=== PATIENT | female | born 1985 | race Caucasian/White ===

== ENCOUNTER → 2016-10-28 | Outpatient (CLI) | payer BC ==
[~2016-10-28] MED LIST: BCPILLS PO; MTR600X PO; OXYC-57 PO; PRENTAB26 PO
[2016-10-28 15:42] LABS: HEMATOCRIT 37.4 % (37-47)
[2016-10-28 16:06] LABS: URINE APPEARANCE CLEAR (CLEAR); URINE BILIRUBIN NEG (NEG); URINE COLOR YELLOW; URINE EPITHELIAL CELL AUTO 20-30 /lpf (0-5); URINE NITRITE NEG (NEG); URINE SPECIFIC GRAVITY 1.007 (1.000-1.030); UROBILINOGEN NEG (NEG)
[2016-10-28 16:07] LABS: MANUAL MICROSCOPIC REQUIRED? NO; REVIEW REQ? NO
[2016-10-28 18:32] LABS: GTGD 50 Grams
== END | disposition home or self-care (01) ==
LOC: C.LAB1850 14:23
PROVIDERS: ATTEND Obstetrics & Gynecology
DX: Z34.01 Encounter for supervision of normal first pregnancy, first trimester (principal)

== ENCOUNTER 2016-11-28 13:03 | Outpatient (CLI) | payer BC ==
[~2016-11-28 13:03] MED LIST changes: -MTR600X PO; -OXYC-57 PO; -PRENTAB26 PO
== END 2016-11-28 14:00 | disposition home or self-care (01) ==
LOC: C.OPB 13:03 → C.LD 13:06 → C.OPB 14:00
PROVIDERS: ATTEND Obstetrics & Gynecology
DX: O30.043 Twin pregnancy, dichorionic/diamniotic, third trimester (principal); Z3A.32 32 weeks gestation of pregnancy

== ENCOUNTER 2016-12-02 09:27 | Outpatient (CLI) | payer BC ==
[~2016-12-02] VITALS: Ht 152.4 cm; Wt 110.5 kg
[2016-12-02] MEDS ORDERED: PRENTAB26 PO (10:01)
[2016-12-02 10:05] VITALS: Ht 152.4 cm; Wt 110.5 kg
[2016-12-02] MEDS: BETAMETH SOD PHOS/ACETATE IA 6 MG/ML IM SCH (13:18)
[2016-12-02] MEDS ORDERED: ACETAMINOPHEN 325 MG TAB PO PRN (23:15)
[2016-12-02] MEDS ORDERED: ACETAMINOPHEN 325 MG TAB ONE (23:24)
[2016-12-03] MEDS ORDERED: BETAMETH SOD PHOS/ACETATE IA 6 MG/ML ONE (12:43)
[2016-12-03] MEDS: BETAMETH SOD PHOS/ACETATE IA 6 MG/ML IM SCH (13:06)
== END 2016-12-03 13:45 | disposition home or self-care (01) ==
LOC: C.OPB 09:27 → C.LD 09:27 → C.OPB 12-03 13:45
PROVIDERS: ATTEND Obstetrics & Gynecology
DX: O62.9 Abnormality of forces of labor, unspecified (principal); O26.853 Spotting complicating pregnancy, third trimester; O30.043 Twin pregnancy, dichorionic/diamniotic, third trimester; Z3A.33 33 weeks gestation of pregnancy

== ENCOUNTER 2016-12-10 18:39 | Outpatient (CLI) | payer BC ==
[~2016-12-10] VITALS: Ht 172.7 cm; Wt 110.0 kg
[~2016-12-10 18:39] MED LIST changes: -BCPILLS PO; +PRENTAB26 PO
[2016-12-10 18:53] VITALS: Ht 172.7 cm; Wt 110.0 kg
--- NOTE | 2016-12-17 12:30 | EDITING REQUIRED CODING QUERY ---
DIAGNOSIS NEEDED To promote full compliance with coding requirements relating to patient care, physician participation is requested in all cases of surfacing machine operator uncertainty. Please assist us with the question(s) below: Coding Question: The patient received care in labor and delivery on 12/10/16 as noted within the record. Please document the diagnosis that is being addressed by the medication/treatment. Provider Response: DIAGNOSIS: Twin in third trimester. Thank you for your assistance, Paulina Espinosa - Bottle Washer
== END 2016-12-10 19:38 | disposition home or self-care (01) ==
LOC: C.OPB 18:39 → C.LD 18:39 → C.OPB 19:38
PROVIDERS: ATTEND Obstetrics & Gynecology
DX: O30.093 Twin pregnancy, unable to determine number of placenta and number of amniotic sacs, third trimester (principal); Z3A.34 34 weeks gestation of pregnancy

== ENCOUNTER 2016-12-17 18:27 | Outpatient (CLI) | payer BC | END 2016-12-17 19:26 | disposition home or self-care (01) | LOC: C.LD 18:27 → C.OPB 18:27 | PROVIDERS: ATTEND Obstetrics & Gynecology | DX: O30.043 Twin pregnancy, dichorionic/diamniotic, third trimester (principal); Z3A.35 35 weeks gestation of pregnancy ==

== ENCOUNTER 2016-12-21 18:39 | Outpatient (CLI) | payer BC ==
[~2016-12-21 18:39] MED LIST changes: -MTR600X PO; -OXYC-57 PO
--- NOTE | 2016-12-23 10:43 | EDITING REQUIRED CODING QUERY ---
DIAGNOSIS NEEDED To promote full compliance with coding requirements relating to patient care, physician participation is requested in all cases of ornamental machine operator uncertainty. Please assist us with the question(s) below: Coding Question: The patient received care in labor and delivery on 12/21/16 as noted within the record. Please document the diagnosis that is being addressed by the medication/treatment. Provider Response: DIAGNOSIS: Twin gestation Thank you for your assistance, Paulina Espinosa - Nut Sifter
== END 2016-12-21 19:00 | disposition home or self-care (01) ==
LOC: C.LD 18:39 → C.OPB 18:39
PROVIDERS: ATTEND Obstetrics & Gynecology
DX: O30.043 Twin pregnancy, dichorionic/diamniotic, third trimester (principal); Z3A.36 36 weeks gestation of pregnancy

== ENCOUNTER → 2016-12-21 | Outpatient (CLI) | payer BC ==
[~2016-12-21] MED LIST changes: +MTR600X PO; +OXYC-57 PO
== END | disposition home or self-care (01) ==
LOC: C.LABSPEC 13:40
PROVIDERS: ATTEND Obstetrics & Gynecology
DX: O30.043 Twin pregnancy, dichorionic/diamniotic, third trimester (principal); Z3A.00 Weeks of gestation of pregnancy not specified

== ENCOUNTER 2016-12-24 18:30 | Outpatient (CLI) | payer BC | END 2016-12-24 19:05 | disposition home or self-care (01) | LOC: C.OPB 18:30 → C.LD 18:30 → C.OPB 19:05 | PROVIDERS: ATTEND Obstetrics & Gynecology | DX: O30.093 Twin pregnancy, unable to determine number of placenta and number of amniotic sacs, third trimester (principal); Z3A.36 36 weeks gestation of pregnancy ==

== ENCOUNTER 2016-12-28 09:12 | Outpatient (CLI) | payer BC ==
--- NOTE | 2016-12-29 14:15 | EDITING REQUIRED CODING QUERY ---
DIAGNOSIS NEEDED To promote full compliance with coding requirements relating to patient care, physician participation is requested in all cases of program services planner uncertainty. Please assist us with the question(s) below: Coding Question: The patient received care in labor and delivery on 12/28/16 as noted within the record. Please document the diagnosis that is being addressed by the medication/treatment. Provider Response: DIAGNOSIS: Twin in 3rd trimester. Thank you for your assistance, Paulina Espinosa - Order Picker/Assembler
== END 2016-12-28 10:16 | disposition home or self-care (01) ==
LOC: C.LD 09:12 → C.OPB 09:12
PROVIDERS: ATTEND Obstetrics & Gynecology
DX: O30.043 Twin pregnancy, dichorionic/diamniotic, third trimester (principal); Z3A.37 37 weeks gestation of pregnancy

== ENCOUNTER 2017-01-01 14:49 | Inpatient (IN) | payer BC ==
[~2017-01-01] VITALS: Ht 172.7 cm; Wt 114.1 kg
[2017-01-01] MEDS ORDERED: LACTATED RINGER'S 1000ML 1,000 ML IV PRN (15:21)
[2017-01-01] MEDS ORDERED: LACTATED RINGER'S 1000ML 500 ML IV PRN ×2 (15:23→17:14)
[2017-01-01] MEDS ORDERED: OXYTOCIN 30 UNITS/500ML NSS IV PRN (15:30)
[2017-01-01 15:46] LABS: HEMATOCRIT 42.6 % (37-47); MEAN CELL VOLUME 82.4 fL (80-100); MEAN CORPUSCULAR HEMOGLOBIN 27.5 pg (25-34); MEAN CORPUSCULAR HGB CONC 33.3 g/dl (32-36); PLATELET COUNT 167 K/uL (130-400); RED BLOOD COUNT 5.17 M/uL (4.2-5.4); WHITE BLOOD COUNT 10.11 K/uL (4.8-10.8)
[2017-01-01] MEDS: LACTATED RINGER'S 1000ML 1,000 ML IV SCH ×2 (16:05→17:41)
[2017-01-01] MEDS ORDERED: EpHEDrine SULFATE INJ 50 MG/ML AMP ONE (16:19)
[2017-01-01] MEDS ORDERED: BUPIVACAINE 0.25% 30 ML VIAL ONE (16:19)
[2017-01-01] MEDS ORDERED: FENTANYL CITRATE INJ 50 MCG/1 ML 2 ML VIAL ONE ×2 (16:20→19:20)
[2017-01-01] MEDS ORDERED: FENTANYL 2MCG/ML ROPIV 1.25MG/ML 100ML BAG EPI ONE (16:21)
[2017-01-01] MEDS ORDERED: NALOXONE HCL INJ 1 MG in SODIUM CHLORIDE 0.9% 1000ML 1,000 ML IV PRN (17:14)
[2017-01-01] MEDS ORDERED: EpHEDrine SULFATE INJ 50 MG/ML AMP IV PRN (17:15)
[2017-01-01] MEDS ORDERED: FENTANYL 2MCG/ML ROPIV 1.25MG/ML 100ML BAG EPI PRN (17:15)
[2017-01-01] MEDS ORDERED: ONDANSETRON INJ 2 MG/ML 2 ML VIAL IV PRN (17:15)
[2017-01-01] MEDS ORDERED: DiphenhydrAMINE HCL 50 MG/ML VIAL IV PRN (17:15)
[2017-01-01] MEDS ORDERED: NALOXONE HCL INJ 0.4 MG/1 ML VIAL/CARP IV PRN (17:15)
[2017-01-01] MEDS ORDERED: NALBUPHINE HCL INJ 10 MG/ML AMP IV PRN (17:15)
[2017-01-01] MEDS ORDERED: OXYTOCIN INJ 10 UNITS/ML VIAL ONE ×2 (19:07→19:24)
[2017-01-01] MEDS ORDERED: PROPOFOL IV EMULSION 10 MG/ML 20 ML VIAL IV ONE (19:09)
[2017-01-01] MEDS ORDERED: SUCCINYLCHOLINE CHLORIDE 20 MG/ML 10 ML VIAL IV ONE (19:11)
[2017-01-01] MEDS ORDERED: MoRPHine SULFATE PF 1 MG/ML 10 ML AMP/VIAL ONE (19:11)
[2017-01-01] MEDS ORDERED: ONDANSETRON INJ 2 MG/ML 2 ML VIAL ONE ×2 (19:18)
[2017-01-01] MEDS ORDERED: CEFAZOLIN SOD 1 GM VIAL ONE (19:18)
[2017-01-01] MEDS ORDERED: DEXAMETHASONE SOD INJ 4 MG/ML VIAL ONE (19:18)
[2017-01-01] MEDS ORDERED: PHENYLEPHRINE HCL INJ 10 MG/ML VIAL ONE (19:19)
[2017-01-01] MEDS ORDERED: METOCLOPRAMIDE HCL INJ 5 MG/ML 2 ML VIAL ONE (19:22)
[2017-01-01] MEDS ORDERED: MAGNESIUM HYDROXIDE SUSP 30 ML UDC PO PRN (20:00)
[2017-01-01] MEDS ORDERED: DIPHTHERIA/TETANUS/PERTUSSIS 0.5 ML SYR/VIAL IM. ONE (20:00)
[2017-01-01] MEDS ORDERED: HYDROCORTISONE ACETATE 25 MG SUPP PR PRN (20:00)
[2017-01-01] MEDS ORDERED: SENNA 8.6 MG TAB PO PRN (20:00)
[2017-01-01] MEDS ORDERED: LANOLIN OINT EXT PRN ×2 (20:00)
[2017-01-01] MEDS ORDERED: SUPERCREAM 0.870 % 15GM JAR EXT PRN (20:00)
[2017-01-01] MEDS: DOCUSATE SODIUM 100 MG CAP PO SCH (20:00)
[2017-01-01] MEDS ORDERED: BENZOCAINE 20% AER SPR 82.5 GM CAN EXT PRN (20:00)
[2017-01-01] MEDS ORDERED: CEFAZOLIN IV 2,000 MG in DEXTROSE 5% 50ML 50 ML IV SCH (20:00)
--- NOTE | 2017-01-01 20:18 | [facility] Post Operative Brief Note ---
Immediate Operative Summary Operative Date Jan 01, 2017. Pre-Operative Diagnosis 1) Twin at 37 weeks GA Post-Operative Diagnosis 1) Same 2) Malprentation of Baby B 3) Prolapsed Cord Baby B Procedure(s) Performed 1) Baby A 2) State C/S for Baby B Surgeon Martina Puddler Pile Driving Surgeon(s) Rachel Estimated Blood Loss 1000 Findings Baby A delivered over midline episiotomy, nuchal cord x2, Apgars 8/9, 6lbs 14ozs. Abdominal U/S of Baby B after Baby A delivered showed apparent vtx presentation. AROM Baby B, compound presentation of Baby B with feet in vagina, and prolapsed cord. Attempt at reduction unsuccessful. Under general anesthesia baby B delivered by stat C/S, Apgars 3/9 toan of 6 lbs. Normal appearing tubes and ovaries bilaterally Fluids (cc crystalloids) 1700 Specimens 1) placenta x2 Drains Nicole to gravity Anesthesia Epidural/General Complication(s) None Disposition L&D
[2017-01-01] MEDS: OXYTOCIN INJ 20 UNITS in LACTATED RINGER'S 1000ML 1,000 ML IV SCH (20:30)
--- NOTE | 2017-01-01 20:35 | Anesthesiology Progress Note ---
Anesthesia Post Op Note Date & Time Jan 01, 2017 at 20:34 Vital Signs Pain Intensity: 3 Notes Mental Status: alert / awake / arousable, participated in evaluation Pt Amnestic to Procedure: Yes Nausea / Vomiting: adequately controlled Pain: adequately controlled Airway Patency, RR, SpO2: stable & adequate BP & HR: stable & adequate Hydration State: stable & adequate Neuraxial Anesthesia: was administered, sensory block is resolving Anesthetic Complications: no major complications apparent
[2017-01-01] MEDS ORDERED: MoRPHine SULFATE PF 1 MG/ML 10 ML AMP/VIAL EPI PRN (20:45)
[2017-01-01] MEDS ORDERED: NO NARCOTICS OR SEDATIVES SCH (20:45)
[2017-01-01] MEDS ORDERED: MEPERIDINE HCL 25 MG/ML CARP IV PRN (20:45)
[2017-01-01] MEDS ORDERED: CONTINUE MEDICATION ONE (20:45)
[2017-01-01] MEDS ORDERED: MoRPHine SULFATE 2 MG/ML CARP IV PRN (20:45)
[2017-01-01 21:05] VITALS: Ht 172.7 cm; Wt 114.1 kg
[2017-01-01] MEDS ORDERED: CARBOPROST TROMETHAMINE 250 MCG/ML AMP IM ONE (21:15)
--- NOTE | 2017-01-01 21:57 | OPERATIVE REPORT ---
DATE OF OPERATION: 01/01/2017 PREOPERATIVE DIAGNOSES: 1. Twin pregnancies, di/di, at 37+ weeks gestational age. 2. Spontaneous rupture of membranes. 3. Spontaneous labor. POSTOPERATIVE DIAGNOSES: 1. Same. 2. Malpresentation of baby B. 3. Cord prolapse of baby B. PROCEDURES PERFORMED: 1. Normal spontaneous vaginal delivery of baby A. 2. Stat low cervical transverse section of baby B. SURGEON: Dr. Mack. AIRFREIGHT OPERATIONS AGENT: Dr. Tameka Ramos. ANESTHESIA: Epidural with general. FINDINGS: Baby A delivered vaginally over a midline episiotomy. Nuchal cord x2 reduced on the perineum. Transabdominal ultrasound showed baby B in apparent vertex presentation. Artificial rupture of membranes of baby B showed prolapse of the lower extremity through the cervix along with the umbilical cord. Attempted manual reduction unsuccessful. Under general anesthesia, stat low cervical transverse section performed for baby B, Apgars of 3 and 9 and weight of 6 pounds 0 ounces. Arterial and venous cord gases are pending. Normal appearing tubes and ovaries bilaterally. PROCEDURE IN DETAIL: The patient was taken to the delivery room for an anticipated vaginal delivery of twins. Baby A presented in a vertex OA presentation and the patient pushed for 10 minutes delivering the baby over a midline episiotomy. Cord was clamped and cut, and the baby was passed off to pediatrics who was in attendance for the delivery. Dr. Ramos then performed a transabdominal ultrasound which showed baby B in an apparent vertex presentation. Artificial rupture of membranes of the sac showed vertex but feet coming through the cervix into the vagina along with prolapse of the umbilical cord. Attempt at manual reduction of the lower extremities was unsuccessful. At this point, a decision was made to proceed with a stat low cervical transverse section under general anesthesia. After the patient was put to sleep by anesthesia, a transverse incision was made. Underlying subcutaneous tissue was dissected down to the ventral abdominal fascia. The fascia was opened manually in a vertical manner. The preperitoneal fascia was dissected away until the peritoneal cavity was entered. Bladder blade was placed. Uterus was entered sharply and extended in a semi-lunar fashion manually. A viable female was then delivered. Cord was clamped and cut, and the baby was passed off to pediatrics. The placenta was delivered manually and sent for pathological evaluation. The uterine cavity was wiped clean of any residual blood tissue and/or clot. The uterine incision was closed in 3 layers, the first layer a running locking stitch of 4-0 Vicryl, the second an imbricating stitch, and the third layer was a 0 Monocryl baseball stitch on the serosa of the uterus. The pelvis was then thoroughly irrigated with 4000 mL of warm saline. All pedicles were inspected for hemostasis which was present. All blood clots were evacuated from the pelvis. The uterus was returned to the pelvic cavity. Sponge and needle count was correct. The paracolic gutters were cleared bilaterally of any blood tissue and/or clot. The uterine incision was inspected again for hemostasis which was present. The rectus muscle was then plicated in the midline with a running 2-0 Vicryl suture. The fascia was closed laterally with a 0 PDS suture. The subcutaneous tissue was irrigated with warm saline and the skin incision was closed with a 4-0 Monocryl suture. The patient was then re-placed in the dorsal lithotomy position and the episiotomy was repaired with 3-0 chromic in a routine fashion. The patient was taken out of the dorsolithotomy position to recovery room in satisfactory condition. I attest to the content of the Intraoperative Record and any orders documented therein. Any exceptio ns are noted below.
[2017-01-01 23:50] VITALS: BP 132/79; PULSE 54; TEMP 37.1; O2SAT 96
[2017-01-01] MEDS: KETOROLAC TROMETHAMINE 30 MG/ML VIAL IV. PRN (23:59)
[2017-01-02] VITALS (19 sets, daily range): BP systolic 111–121; BP diastolic 70–79; PULSE 57–83; TEMP 36.6–37.2; O2SAT 94–97
[2017-01-02] MEDS: OXYTOCIN INJ 20 UNITS in LACTATED RINGER'S 1000ML 1,000 ML IV SCH (03:13)
--- NOTE | 2017-01-02 07:15 | Progress Note ---
Subjective Jan 02, 2017. Subjective conversation w/ patient, physical exam, lab review Ambulation: limited ambulation (due to carvalho) Voiding: carvalho catheter in place Passing Gas: Yes Lochia: Moderate Feeding Type: Breast Feeding Pain: moderate pain, improves with meds Comment: Patient was seen at the bedside. No acute event overnight. Review of Systems Constitutional: No fever Respiratory: No shortness of breath Cardiac: No chest pain Breast: No breast lump Abdomen: No nausea, No pain, No vomiting Denies headache Objective Vital Signs Date Time Temp Pulse Resp B/P Pulse Ox O2 Delivery O2 Flow Rate FiO2 01/02/17 06:00 18 96 01/02/17 05:00 18 96 01/02/17 04:00 20 96 01/02/17 04:00 37.2 57 18 119/76 96 Room Air 01/02/17 03:00 20 96 01/02/17 02:00 18 97 01/02/17 01:00 18 97 01/01/17 23:50 18 96 01/01/17 23:50 96 Room Air 01/01/17 23:50 37.1 54 18 132/79 96 Room Air Physical Exam General Appearance: WELL-APPEARING, WD/WN, NO APPARENT DISTRESS Respiratory/Chest: chest non-tender, lungs clear, normal breath sounds, no respiratory distress Cardiovascular: regular rate, rhythm Abdomen: normal bowel sounds, non tender, soft Fundus: Firm, Relation to Umbilicus (2-3cm below) Incision Description: Clean, Dry & Intact Extremities: non-tender, no pedal edema, no calf tenderness Laboratory Results Last 24 Hours Test 01/01/17 15:38 01/02/17 06:00 White Blood Count 10.11 K/uL Red Blood Count 5.17 M/uL Hemoglobin 14.2 g/dL Hematocrit 42.6 % Mean Corpuscular Volume 82.4 fL Mean Corpuscular Hemoglobin 27.5 pg Mean Corpuscular Hemoglobin Concent 33.3 g/dl RDW Standard Deviation 48.1 fL RDW Coefficient of Variation 16.0 % Platelet Count 167 K/uL Medications Current Inpatient Medications Medications (Trade) Dose Ordered Sig/Sherron Route Start Time Stop Time Status Last Admin Dose Admin Lactated Ringer's (Lr 1000ml) 1,000 ml @ 125 mls/hr Q8H IV 01/01/17 15:21 01/03/17 15:20 01/01/17 17:41 125 MLS/HR Naloxone HCl (Narcan Inj) 0.1 mg UD PRN IV 01/01/17 17:15 01/02/17 13:00 Ephedrine Sulfate (EpHEDrine SULFATE INJ) 10 mg Q5M PRN IV 01/01/17 17:15 01/02/17 13:00 Diphenhydramine HCl (Benadryl Inj) 25 mg Q6H PRN IV 01/01/17 17:15 01/02/17 13:00 Nalbuphine HCl 5 mg 5 mg Q10M PRN IV 01/01/17 17:15 01/02/17 13:00 Naloxone HCl/ Sodium Chloride (Narcan Inj/Nss 1000ml) 1,002.5 ml @ 50 mls/hr Q20H3M PRN IV 01/01/17 17:14 01/02/17 13:00 Ondansetron HCl 4 mg 4 mg Q6H PRN IV 01/01/17 17:15 01/02/17 13:00 Oxytocin/Lactated Ringer's (Pitocin Inj/Lr 1000ml) 1,002 ml @ 125 mls/hr Q8H1M IV 01/01/17 19:46 01/02/17 11:47 01/02/17 03:13 125 MLS/HR Ketorolac Tromethamine (Toradol Inj) 30 mg Q6H PRN IV. 01/02/17 13:00 01/07/17 12:59 Oxycodone/ Acetaminophen (Percocet 5-325mg Tab) 1 tab Q4H PRN PO 01/02/17 13:00 01/16/17 12:59 Oxycodone/ Acetaminophen (Percocet 5-325mg Tab) 2 tab Q4H PRN PO 01/02/17 13:00 01/16/17 12:59 Ibuprofen (Motrin Tab) 600 mg Q4H PRN PO 01/01/17 20:00 01/31/17 19:59 Ondansetron HCl (Zofran Inj) 4 mg Q4H PRN IV 01/02/17 13:00 02/01/17 12:59 Prenat Multivit/ Tugboat Pilot/Iron/Folic Ac ( Vitamin Tab) 1 tab DAILY PO 01/02/17 08:00 02/01/17 07:59 Bisacodyl (Dulcolax Tab) 5 mg HS ONCE PO 01/02/17 22:00 01/02/17 22:01 Bisacodyl (Dulcolax Supp) 10 mg PRN PRN NV 01/03/17 20:00 02/02/17 19:59 Docusate Sodium (coLACE CAP) 100 mg BID PO 01/01/17 20:00 01/31/17 19:59 Magnesium Hydroxide (Milk Of Magnesia Susp) 30 ml HS PRN PO 01/01/17 20:00 01/31/17 19:59 Ferrous Sulfate (Feosol Tab) 325 mg DAILY PO 01/02/17 08:00 02/01/17 07:59 Cocaine HCl (Supercream 0.870% Cr) BID PRN EXT 01/01/17 20:00 01/15/17 19:59 Lanolin (Lanolin Oint) PRN PRN EXT 01/01/17 20:00 01/31/17 19:59 Hydrocortisone Acetate (Anusol Hc Supp) 25 mg BID PRN NV 01/01/17 20:00 01/31/17 19:59 Benzocaine (Dermoplast Aero Spr) 1 appln PRN PRN EXT 01/01/17 20:00 01/31/17 19:59 Senna (Senokot Tab) 17.2 mg HS PRN PO 01/01/17 20:00 01/31/17 19:59 Ketorolac Tromethamine (Toradol Inj) 30 mg Q6H PRN IV. 01/01/17 20:45 01/02/17 13:00 01/01/17 23:59 30 MG Meperidine HCl (Demerol Inj) 25 mg Q15M PRN IV 01/01/17 20:45 01/02/17 13:00 01/01/17 20:53 25 MG Miscellaneous Information (Dc Intraspinal Morphine) 1 ea TODAY@1300 N/A 01/02/17 13:00 01/02/17 13:01 Miscellaneous Information (No Narcotics Or Sedatives) 1 ea UD N/A 01/01/17 20:45 01/02/17 13:00 Morphine Sulfate (Duramorph Pf Inj) TODAY PRN EPI 01/01/17 20:45 01/02/17 13:00 Morphine Sulfate (MoRPHine SULFATE INJ) 2 mg Q6H PRN IV 01/01/17 20:45 01/02/17 13:00 Assessment and Plan Post-, Post-Op Day#: 1 Continue Routine Care: A/P: This is a 31 y/o female, , s/p normal vaginal delivery (baby 1) / ( baby 2). Patient had di/di twin. Limited ambulation due to carvalho, otherwise clinically stable. Plan: - Vitals signs are reviewed and WNL (Tmax 37.2 ) - Last Hgb is 14.2 - Blood type O+, GBS neg, Rubella Immune - Routine care - Encourage ambulation, monitor and control pain with medication as needed , continue with regular diet as tolerated and monitor lochia - Stool softeners and sitz bath recommended - Encourage breast feeding and educate about breast feeding Resident Physician Supervision Note: I interviewed and examined the patient. Discussed with Dr. Mckeon and agree with findings and plan as documented in the note. Any exceptions or clarifications are listed here: Discussed delivery and reasoning for C/S. Discussed increased risk of post-op infection. Routine post-op care Documented By: Zeferino Mack
[2017-01-02 07:47] LABS: BASO % 0.1 %; BASO ABS # 0.01 K/uL (0-0.2); COMPLETE YES; EOS % 0.1 %; HEMATOCRIT 34.3 % (37-47); IG% 0.3 %; LYMPH % 13.2 %; LYMPH ABS # 2.49 K/uL (1.2-3.4); MEAN CELL VOLUME 83.1 fL (80-100); MEAN CORPUSCULAR HEMOGLOBIN 26.9 pg (25-34); MEAN CORPUSCULAR HGB CONC 32.4 g/dl (32-36); MICROCYTOSIS PRESENT; MONO % 7.1 %; NEUT % 79.2 %; PLATELET COUNT 140 K/uL (130-400); PLT ESTIMATE NORMAL; RED BLOOD COUNT 4.13 M/uL (4.2-5.4); WHITE BLOOD COUNT 18.88 K/uL (4.8-10.8)
[2017-01-02] MEDS: KETOROLAC TROMETHAMINE 30 MG/ML VIAL IV. PRN ×2 (07:57→12:59)
[2017-01-02] MEDS: FERROUS SULFATE 325 MG TAB PO SCH (07:58)
[2017-01-02] MEDS: PRENATAL VITAMIN TAB PO SCH (07:58)
[2017-01-02] MEDS: DOCUSATE SODIUM 100 MG CAP PO SCH ×2 (07:59→19:34)
[2017-01-02] MEDS ORDERED: DC INTRASPINAL MORPHINE SCH (13:00)
[2017-01-02] MEDS ORDERED: KETOROLAC TROMETHAMINE 30 MG/ML VIAL IV. PRN (13:00)
[2017-01-02] MEDS ORDERED: OXYCODONE/ACETAMINOPHEN 5-325 TAB PO PRN (13:00)
[2017-01-02] MEDS ORDERED: ONDANSETRON INJ 2 MG/ML 2 ML VIAL IV PRN (13:00)
[2017-01-02] MEDS: IBUPROFEN 600 MG TAB PO PRN (17:59)
[2017-01-02] MEDS: OXYCODONE/ACETAMINOPHEN 5-325 TAB PO PRN (19:35)
[2017-01-02] MEDS ORDERED: BISACODYL 5 MG TABEC PO ONE (22:00)
[2017-01-03] MEDS: OXYCODONE/ACETAMINOPHEN 5-325 TAB PO PRN ×5 (02:21→22:07)
[2017-01-03] MEDS: IBUPROFEN 600 MG TAB PO PRN ×5 (02:21→22:07)
[2017-01-03 07:00] LABS: HEMATOCRIT 32.8 % (37-47)
[2017-01-03] MEDS: DOCUSATE SODIUM 100 MG CAP PO SCH ×2 (08:00→19:40)
[2017-01-03 08:05] VITALS: BP 126/82; PULSE 82; TEMP 37.1
[2017-01-03] MEDS: PRENATAL VITAMIN TAB PO SCH (08:15)
[2017-01-03] MEDS: FERROUS SULFATE 325 MG TAB PO SCH (08:15)
--- NOTE | 2017-01-03 09:23 | Progress Note ---
Subjective Jan 03, 2017. Subjective conversation w/ patient, physical exam Ambulation: ambulating normally Voiding: no voiding problems, carvalho catheter in place Passing Gas: Yes Diet Tolerance: Regular Diet Lochia: Moderate Feeding Type: Breast Feeding Comment: having right shoulder pain & pain above her incision. both relieved with pain meds. gets dizzy by the time she gets to the bathroom Review of Systems Constitutional: No chills, No fatigue, No fever, No problem reported, No sweats , No weakness, No weight loss Breast: No breast lump, No breast pain, No change in shape, No nipple discharge , No problem reported, No see HPI Abdomen: No GI bleeding, No constipation, No diarrhea, No nausea, No pain, No problem reported, No vomiting Female : No abnormal vaginal bleeding, No dysuria, No hematuria, No incontinence, No problem reported, No see HPI, No urinary frequency, No vaginal discharge Objective Vital Signs Date Time Temp Pulse Resp B/P Pulse Ox O2 Delivery O2 Flow Rate FiO2 01/02/17 23:20 36.7 65 16 111/71 95 Room Air 01/02/17 23:20 Room Air 01/02/17 19:35 36.8 83 18 114/76 94 Room Air 01/02/17 17:05 67 20 121/79 97 Room Air 01/02/17 15:35 36.6 69 18 114/73 95 Room Air 01/02/17 15:35 95 Room Air 01/02/17 13:00 22 95 01/02/17 12:58 36.8 65 22 120/75 94 Room Air 01/02/17 12:00 20 96 01/02/17 11:00 20 95 01/02/17 10:00 16 95 Physical Exam General Appearance: WELL-APPEARING, NO APPARENT DISTRESS Abdomen: soft Fundus: Firm, Non-Tender Incision Description: Clean, Dry & Intact, Ecchymosis (superior portion of incision) Extremities: no calf tenderness Laboratory Results Last 24 Hours Test 01/03/17 06:30 Hemoglobin 10.8 g/dL Hematocrit 32.8 % Assessment and Plan Post-, Post-Op Day#: 2 Continue Routine Care: stable post-op/ course s/p & stat C/S for twin delivery continue current care plan
[2017-01-03 13:00] VITALS: BP 114/74; PULSE 80; TEMP 36.6
[2017-01-03 16:05] VITALS: BP 118/77; PULSE 86; TEMP 36.9; O2SAT 96
[2017-01-03] MEDS ORDERED: BISACODYL 10 MG SUPP PR PRN (20:00)
[2017-01-03] MEDS ORDERED: MTR600X PO (20:36)
[2017-01-03] MEDS ORDERED: OXYC-57 PO (20:36)
--- NOTE | 2017-01-03 20:37 | Discharge Instructions ---
Discharge Instructions Date of Service Jan 03, 2017. Admission Reason for Admission: R/O Labor Discharge Discharge Diagnosis / Problem: recovery for Discharge Goals Goal(s): Routine recovery after Activity Recommendations Activity Limitations: per Instructions/Follow-up section . Instructions / Follow-Up Instructions / Follow-Up ACTIVITY RECOMMENDATIONS: * Gradual return to full activity over the next 2-3 weeks. * No lifting - nothing heavier than baby over the next 2-3 weeks. * Do not engage in vigorous exercise, sexual activity or sports until cleared by your physician. * Do not drive or operate any motorized equipment until cleared by your physician. * You may shower/bathe daily. MEDICATIONS: For discomfort or pain, you may use Acetaminophen (Tylenol), Ibuprofen (Advil), or Naproxen (Aleve) following the package directions. For constipation you may use Colace following the package directions. BREAST CARE: If you are not breast feeding: * Wear a supportive bra 24 hours a day for one to two weeks. * Avoid stimulating your breasts and nipples as much as possible during the first few weeks after delivery. * When taking a shower, have the warm water hit your back, not breasts. * When your breasts feel full, apply ice packs. Usually three to four times a day helps ease the discomfort. * Take a mild pain medication (Tylenol / Motrin) when you are uncomfortable. If breast feeding: * Use breast milk to lubricate nipples. Lansinoh cream may be used for sore nipples. You do not need to remove cream prior to breast feeding. If using a different brand of cream, check the label for directions regarding removal of cream prior to nursing. * Wear a supportive bra. * If having problems with breasts or breast feeding, call a programmer analyst consultant or your health care provider. SPECIAL CARE INSTRUCTIONS: When you are discharged from the hospital, it is important for you to follow the instructions listed below: * During the first week at home, you should be able to care for yourself and your baby. In addition, the usual light household activities are encouraged. * Limit your activities to the way you feel. Do not try to clean the house or move furniture. Be sensible. * If you actively engage in sports and have done so up until the time of your delivery, you may resume these activities as soon as you feel able. This may take up to one month or even longer. Use good judgment. * Continue to take your vitamins for at least six weeks after the of your baby. * Your diet need not be limited unless you were on a special diet before your delivery. Breast-feeding mothers need around 2500 calories per day and at least 64-80 ounces of fluid per day (8 to 10 glasses). * You should eat foods from the four major food groups. Crash diets or fad diets are to be avoided. Eating lean meats, fresh fruits and vegetables, low-fat dairy products, high fiber foods and a regular exercise program, will help you get back to your pre- weight without putting your health at risk. * Constipation is sometimes a problem after delivery. Take a mild laxative as needed. If breast feeding, Milk of Magnesia is acceptable to use. You may use a suppository or Fleets enema. * A daily shower or tub bath is suggested. Wash incision daily with warm soapy water and pat dry. It doesn't need to be covered unless drainage is present. * A bloody vaginal discharge will usually continue until around four weeks . A small amount of bleeding may continue for as long as six weeks. Vaginal discharge changes from the bright red bleeding after delivery to pink then brownish and finally yellowish-pink before becoming white and disappearing. * Bleeding may increase with activity. Your first period may come in 4-8 weeks. If you are breast feeding, your period may be delayed even longer. * Whitten (sex) can begin whenever both you and your partner feel comfortable and do not have any form of genital infection. It is recommended that you wait at least six weeks for internal and external healing to occur. If you have questions, please talk to your health care practitioner. A condom should be used to prevent infection and . * Foreplay, gentle intercourse and lubrication is very important the first several times to prevent pain. A water-based lubricant such as K-Y jelly or Astroglide may be used. * If you have RH negative blood and your baby is RH positive, you will receive RHOGAM by injection prior to discharge. The nurse will give you a card to keep with you that has the date and place that you received RHOGAM after delivery. * During your care, you had a Rubella screen done to check for the presence of rubella antibodies in your blood. If your test was negative, you will receive a Rubella vaccine prior to discharge. This vaccine may cause a fever, soreness at the injection site and flu-like symptoms. If these symptoms persist, notify your health care practitioner. is not advised for one month after a Rubella vaccine. * Verbalizes understanding of car seat law as reviewed with patient nursing. * Car Seat hand-out given and reviewed with patient by nursing. * Shaken baby information reviewed with patient by nursing. Call you doctor if: * Heavy bleeding (saturating several pads an hour) or passing clots the size of your fist. * A fever >101 degrees F (38.3 degrees C) on two occasions four hours apart and /or chills. * Unusual pain in the pelvic or vaginal areas. * Call the doctor for any increased redness, drainage or swelling around the incision and any pain unrelieved by prescribed pain medication. * "Baby Blues" lasting longer than two weeks. If you have any questions or concerns, call your health care practitioner at . FOLLOW UP VISIT: * Please call the office at to schedule a 6 week examination. It is important you keep this appointment. It is important for you to make arrangements for either yearly or twice yearly check-ups thereafter. Current Hospital Diet Patient's current hospital diet: Regular OB Diet Discharge Diet Recommended Diet: Regular OB Diet Procedures Procedures Performed: 1) Baby A 2) State C/S for Baby B Pending Studies Studies pending at discharge: no Medical Emergencies . Who to Call and When: Medical Emergencies: If at any time you feel your situation is an emergency, please call [phone] immediately. . Non-Emergent Contact Non-Emergency issues call your: Screw Machine Tool Setter . . "Provider Documentation" section prepared by Tameka Ramos. . VTE Core Measure Inpt VTE Proph given/why not?: Treatment not indicated
[2017-01-04 01:21] VITALS: BP 107/70; PULSE 67; TEMP 36.5
[2017-01-04] MEDS: OXYCODONE/ACETAMINOPHEN 5-325 TAB PO PRN ×5 (03:24→21:29)
[2017-01-04] MEDS: IBUPROFEN 600 MG TAB PO PRN ×5 (03:25→21:29)
[2017-01-04 07:25] VITALS: BP 113/74; PULSE 78; TEMP 36.7; O2SAT 98
--- NOTE | 2017-01-04 07:33 | Progress Note ---
Subjective January 04, 2017. Subjective conversation w/ patient, physical exam, lab review Ambulation: ambulating normally Voiding: no voiding problems, carvalho catheter in place Passing Gas: Yes Diet Tolerance: Regular Diet Lochia: Moderate Feeding Type: Breast Feeding Pain: improving with meds, shoulder pain also improving Comment: Patient was seen at the bedside. No acute event overnight. Review of Systems Constitutional: No fever Respiratory: No cough, No shortness of breath Cardiac: No chest pain Breast: No breast lump Abdomen: No nausea, No pain Female : No dysuria, No urinary frequency Denies headache Objective Vital Signs Date Time Temp Pulse Resp B/P Pulse Ox O2 Delivery O2 Flow Rate FiO2 01/04/17 01:21 Room Air 01/04/17 01:21 36.5 67 18 107/70 Room Air 01/03/17 16:05 36.9 86 18 118/77 96 Room Air 01/03/17 16:05 96 Room Air 01/03/17 13:00 36.6 80 22 114/74 01/03/17 08:05 37.1 82 20 126/82 Physical Exam General Appearance: WELL-APPEARING, WD/WN, NO APPARENT DISTRESS Respiratory/Chest: chest non-tender, lungs clear, normal breath sounds Cardiovascular: regular rate, rhythm Abdomen: normal bowel sounds, non tender, soft Fundus: Firm, Relation to Umbilicus (about 2cm below U) Incision Description: Clean, Dry & Intact Extremities: non-tender, no pedal edema, no calf tenderness Medications Current Inpatient Medications Medications (Trade) Dose Ordered Sig/Sherron Route Start Time Stop Time Status Last Admin Dose Admin Ketorolac Tromethamine (Toradol Inj) 30 mg Q6H PRN IV. 01/02/17 13:00 01/07/17 12:59 Oxycodone/ Acetaminophen (Percocet 5-325mg Tab) 1 tab Q4H PRN PO 01/02/17 13:00 01/16/17 12:59 01/04/17 03:24 1 TAB Oxycodone/ Acetaminophen (Percocet 5-325mg Tab) 2 tab Q4H PRN PO 01/02/17 13:00 01/16/17 12:59 Ibuprofen (Motrin Tab) 600 mg Q4H PRN PO 01/01/17 20:00 01/31/17 19:59 01/04/17 03:25 600 MG Ondansetron HCl (Zofran Inj) 4 mg Q4H PRN IV 01/02/17 13:00 02/01/17 12:59 Prenat Multivit/ Estill/Iron/Folic Ac ( Vitamin Tab) 1 tab DAILY PO 01/02/17 08:00 02/01/17 07:59 01/03/17 08:15 1 TAB Bisacodyl (Dulcolax Supp) 10 mg PRN PRN DE 01/03/17 20:00 02/02/17 19:59 Docusate Sodium (coLACE CAP) 100 mg BID PO 01/01/17 20:00 01/31/17 19:59 01/03/17 19:40 100 MG Magnesium Hydroxide (Milk Of Magnesia Susp) 30 ml HS PRN PO 01/01/17 20:00 01/31/17 19:59 Ferrous Sulfate (Feosol Tab) 325 mg DAILY PO 01/02/17 08:00 02/01/17 07:59 01/03/17 08:15 325 MG Cocaine HCl (Supercream 0.870% Cr) BID PRN EXT 01/01/17 20:00 01/15/17 19:59 Lanolin (Lanolin Oint) PRN PRN EXT 01/01/17 20:00 01/31/17 19:59 Hydrocortisone Acetate (Anusol Hc Supp) 25 mg BID PRN [place] 01/01/17 20:00 01/31/17 19:59 Benzocaine (Dermoplast Aero Spr) 1 appln PRN PRN EXT 01/01/17 20:00 01/31/17 19:59 01/02/17 14:15 1 APPLN Senna (Senokot Tab) 17.2 mg HS PRN PO 01/01/17 20:00 01/31/17 19:59 Assessment and Plan Post-, Post-Op Day#: 3 Continue Routine Care: Resident Physician Supervision Note: I interviewed and examined the patient. Discussed with Dr. Mckeon and agree with findings and plan as documented in the note. Any exceptions or clarifications are listed here: [None] Documented By: Tameka Ramos A/P: This is a 31 y/o female, , s/p normal vaginal delivery (baby 1)/ ( baby2). She is ambulating and clinically stable to discharge. Follow up in 1 week for incision check up. - Vital signs are reviewed and WNL (Tmax 37.1 ) - Last Hgb 10.8 - Blood type O+, GBS neg, Rubella Immune - No signs of depression. - Routine care - Discussed resting, feeding, pain control, mastitis, control, follow up in 6 weeks and reasons to call sooner, if necessary. - Continue with pain medication as needed, and continue vitamins. - Encourage breast feeding and educate about breast feeding - Patient understands and keen for home. - Plan to discharge home
[2017-01-04] MEDS: FERROUS SULFATE 325 MG TAB PO SCH (08:14)
[2017-01-04] MEDS: PRENATAL VITAMIN TAB PO SCH (08:14)
[2017-01-04] MEDS: DOCUSATE SODIUM 100 MG CAP PO SCH ×2 (08:14→19:36)
--- NOTE | 2017-01-04 15:50 | DISCHARGE SUMMARY ---
NARRATIVE DISCHARGE SUMMARY ADMITTING DIAGNOSES: 1. Complicated at 37+ weeks gestational age. 2. Twin , diamniotic dichorionic. 3. Spontaneous rupture of membranes. 4. Spontaneous labor. DISCHARGE DIAGNOSES: 1. Same. 2. Malpresentation of baby B. 3. Cord prolapse of baby B. PROCEDURES PERFORMED: 1. Normal spontaneous vaginal delivery of baby A. 2. Stat low cervical transverse section of baby B. DISCHARGE MEDICATIONS: 1. Percocet 5/325 one to 2 p.o. q. 4-6 hours p.r.n. pain. 2. Motrin 600 mg p.o. q. 6 hours p.r.n. pain. ADMISSION HISTORY: The patient is a 31-year-old 1, para 0 at 37 plus weeks gestational age who was admitted with spontaneous rupture of membranes in active labor. The patient's was a di/di twin conceived on Clomid. The patient had been followed per twin protocol during the with ultrasound showing good interval growth as well as appropriate testing. On day of admission, the patient was seen in the office for a routine OB visit, she had spontaneous rupture of membranes and was sent to labor and delivery for evaluation. ADMISSION PHYSICAL EXAMINATION: GENERAL: Showed a gravid female in no acute distress. VITAL SIGNS: Showed a blood pressure 132/82. HEENT: Unremarkable. NECK: Supple. LUNGS: Clear. HEART: With a regular rhythm and rate. ABDOMEN: Gravid twin gestation, positive palpable contractions, positive heart tones x2. Estimated weight of a total of 11 pounds. PELVIC: Showed the cervix to be 4 cm dilated, 70% effaced and minus 1 station. EXTREMITIES: Showed no deep calf tenderness. HOSPITAL COURSE: The patient was deemed to be in active labor, contractions were mild and irregular in palpation. Because of the ruptured membranes of twin gestation, Pitocin was initiated per induction protocol. The patient requested and had an epidural placed by anesthesia. The nursery was advised of the impending twin delivery. The patient actually made rapid progress to full dilatation and the vertex was at a +2 presentation when full dilatation was noted. The patient was taken back to the delivery room under a double set up for an anticipated vaginal-vaginal delivery. Dr. Tameka Ramos was in attendance as an or assistant for the delivery. Baby A delivered spontaneously over a midline episiotomy, nuchal cord x2 was reduced on the perineum, and the cord was clamped and cut. Transabdominal ultrasound was then performed which showed the baby to be in an apparent vertex presentation. Artificial rupture of membranes showed a compound presentation with the feet preceding the vertex. The feet were attempted to be reduced manually, but this was unsuccessful. The feet were then grabbed and an attempted external extraction was tried but the uterus had clamped down preventing rotation of the fetus. In addition, the umbilical cord was not palpable within the cervix. The decision at this point was made to proceed with a stat low cervical transverse section under general anesthesia. Following general anesthesia, the patient underwent the stat section, delivering the viable female with Apgars of 3 and 8. Postoperatively, the patient did well. The Nicole catheter was removed on the first postoperative day, the patient was ambulating without difficulty. Cord gases on baby B were 7.26 and 7.33. By the 3rd postoperative day, the patient was tolerating a regular diet and was discharged home with the routine discharge instructions with the prescription for the medications as listed as above. She will follow up in the office for postoperative check but as always she has been instructed to call with any questions, problems or difficulties.
[2017-01-04 16:35] VITALS: BP 123/79; PULSE 79; TEMP 36.8; O2SAT 96
[2017-01-04 23:40] VITALS: BP 129/86; PULSE 70; TEMP 36.7; O2SAT 97; O2SAT 98
[2017-01-05] MEDS: IBUPROFEN 600 MG TAB PO PRN ×3 (02:30→11:31)
[2017-01-05] MEDS: OXYCODONE/ACETAMINOPHEN 5-325 TAB PO PRN ×3 (02:31→11:30)
--- NOTE | 2017-01-05 06:40 | Progress Note ---
Subjective January 05, 2017. Subjective conversation w/ patient, physical exam, lab review Ambulation: ambulating normally Voiding: no voiding problems Passing Gas: Yes Diet Tolerance: Regular Diet Lochia: Small Feeding Type: Breast Feeding Pain: improves with meds Comment: Patient was seen at the bedside. No acute event overnight. Review of Systems Constitutional: No fever Respiratory: No shortness of breath Cardiac: No chest pain Breast: No breast lump Abdomen: No nausea, No pain, No vomiting Female : No dysuria, No urinary frequency Denies headache Objective Vital Signs Date Time Temp Pulse Resp B/P Pulse Ox O2 Delivery O2 Flow Rate FiO2 01/04/17 23:40 97 Room Air 01/04/17 23:40 36.7 70 18 129/86 98 Room Air 01/04/17 16:35 96 Room Air 01/04/17 16:35 36.8 79 22 123/79 96 Room Air 01/04/17 07:25 36.7 78 16 113/74 98 Room Air 01/04/17 07:25 Room Air Physical Exam General Appearance: WELL-APPEARING, WD/WN, NO APPARENT DISTRESS Respiratory/Chest: chest non-tender, lungs clear, normal breath sounds Cardiovascular: regular rate, rhythm Abdomen: normal bowel sounds, non tender, soft Fundus: Firm, Relation to Umbilicus (2cm below U) Incision Description: Clean, Dry & Intact Extremities: non-tender, no pedal edema, no calf tenderness Medications Current Inpatient Medications Medications (Trade) Dose Ordered Sig/Sherron Route Start Time Stop Time Status Last Admin Dose Admin Ketorolac Tromethamine (Toradol Inj) 30 mg Q6H PRN IV. 01/02/17 13:00 01/07/17 12:59 Oxycodone/ Acetaminophen (Percocet 5-325mg Tab) 1 tab Q4H PRN PO 01/02/17 13:00 01/16/17 12:59 01/05/17 02:31 1 TAB Oxycodone/ Acetaminophen (Percocet 5-325mg Tab) 2 tab Q4H PRN PO 01/02/17 13:00 01/16/17 12:59 Ibuprofen (Motrin Tab) 600 mg Q4H PRN PO 01/01/17 20:00 01/31/17 19:59 01/05/17 02:30 600 MG Ondansetron HCl (Zofran Inj) mg Q4H PRN IV 01/02/17 13:00 02/01/17 12:59 Prenat Multivit/ Loader Technician/Iron/Folic Ac ( Vitamin Tab) 1 tab DAILY PO 01/02/17 08:00 02/01/17 07:59 01/04/17 08:14 1 TAB Bisacodyl (Dulcolax Supp) 10 mg PRN PRN GA 01/03/17 20:00 02/02/17 19:59 Docusate Sodium (coLACE CAP) 100 mg BID PO 01/01/17 20:00 01/31/17 19:59 01/04/17 19:36 100 MG Magnesium Hydroxide (Milk Of Magnesia Susp) 30 ml HS PRN PO 01/01/17 20:00 01/31/17 19:59 01/04/17 09:31 30 ML Ferrous Sulfate (Feosol Tab) 325 mg DAILY PO 01/02/17 08:00 02/01/17 07:59 01/04/17 08:14 325 MG Cocaine HCl (Supercream 0.870% Cr) BID PRN EXT 01/01/17 20:00 01/15/17 19:59 Lanolin (Lanolin Oint) PRN PRN EXT 01/01/17 20:00 01/31/17 19:59 Hydrocortisone Acetate (Anusol Hc Supp) 25 mg BID PRN GA 01/01/17 20:00 01/31/17 19:59 Benzocaine (Dermoplast Aero Spr) 1 appln PRN PRN EXT 01/01/17 20:00 01/31/17 19:59 01/02/17 14:15 1 APPLN Senna (Senokot Tab) 17.2 mg HS PRN PO 01/01/17 20:00 01/31/17 19:59 Assessment and Plan Post-, Post-Op Day#: 4 Continue Routine Care: A/P: This is a 31 y/o female, , s/p normal vaginal delivery (baby 1)/ ( baby2). She is ambulating and clinically stable to discharge. Follow up in 1 week for incision check up. - Vital signs are reviewed and WNL (Tmax 36.8 ) - Last Hgb 10.8 - Blood type O+, GBS neg, Rubella Immune - No signs of depression. - Routine care - Discussed resting, feeding, pain control, mastitis, control, follow up in 6 weeks and reasons to call sooner, if necessary. - Continue with pain medication as needed, and continue vitamins. - Encourage breast feeding and educate about breast feeding - Patient understands and keen for home. - Discharge home with home health Resident Physician Supervision Note: I was present with Dr. Mckeon during the history and exam. I discussed the case with the resident and agree with the findings and plan as documented in the note. Any exceptions or clarifications are listed here: Patient feels much better and does feel ready for discharge. Given her h/o mood d/o it was requested she have home visits. She has no signs of depression currently. f/u 6wks pp check. Documented By: Candy Cornell
[2017-01-05] MEDS: PRENATAL VITAMIN TAB PO SCH (07:22)
[2017-01-05] MEDS: FERROUS SULFATE 325 MG TAB PO SCH (07:23)
[2017-01-05] MEDS: DOCUSATE SODIUM 100 MG CAP PO SCH (07:23)
[2017-01-05 07:45] VITALS: BP 124/76; PULSE 75; TEMP 36.8; O2SAT 97; O2SAT 98
[2017-01-05 12:00] VITALS: BP_DIAS 76; PULSE 75; TEMP 36.8
== END 2017-01-05 13:30 | disposition home health service (06) | DRG 765 ==
LOC: C.OPB 14:49 → C.LD 15:03 → C.OPB 15:23 → C.LD 15:23 → C.OBG 23:06 → EDSTATUS 01-04 15:00
PROVIDERS: ADMIT Obstetrics & Gynecology; ATTEND Obstetrics & Gynecology
PROC: 10E0XZZ Delivery of Products of Conception, External Approach (ICD-10-PCS; principal; 2017-01-01 19:00)
PROC: 10D00Z1 Extraction of Products of Conception, Low, Open Approach (ICD-10-PCS; principal; 2017-01-01 19:00)
DX: O32.8XX2 Maternal care for other malpresentation of fetus, fetus 2 (principal); O30.043 Twin pregnancy, dichorionic/diamniotic, third trimester; O69.81X1 Labor and delivery complicated by cord around neck, without compression, fetus 1; O69.0XX2 Labor and delivery complicated by prolapse of cord, fetus 2; O34.83 Maternal care for other abnormalities of pelvic organs, third trimester; E28.2 Polycystic ovarian syndrome; Z37.2 Twins, both liveborn; Z3A.37 37 weeks gestation of pregnancy